=== PATIENT | male | born 1980 | race African-American/Black ===

== ENCOUNTER 2017-06-18 09:22 | Emergency (ER) | payer OTHER ==
[~2017-06-18] VITALS: Ht 177.8 cm; Wt 120.5 kg
[2017-06-18] MEDS ORDERED: SKELAXIN 800MG800 MG PO (12:01)
[2017-06-18] MEDS ORDERED: NORCO 325 MG-51 TA1 PO (12:01)
[2017-06-18] MEDS ORDERED: IBU800 M1 PO (12:01)
[2017-06-18 12:11] VITALS: BP 157/95
== END 2017-06-18 12:08 | disposition home or self-care (01) ==
LOC: ED 09:22
DX: S09.90XA Unspecified injury of head, initial encounter (principal); S19.9XXA Unspecified injury of neck, initial encounter; S00.83XA Contusion of other part of head, initial encounter; V43.62XA Car passenger injured in collision with other type car in traffic accident, initial encounter; Y92.410 Unspecified street and highway as the place of occurrence of the external cause; S00.93XA Contusion of unspecified part of head, initial encounter; S30.0XXA Contusion of lower back and pelvis, initial encounter; S20.222A Contusion of left back wall of thorax, initial encounter; S20.221A Contusion of right back wall of thorax, initial encounter; S40.012A Contusion of left shoulder, initial encounter; S80.02XA Contusion of left knee, initial encounter
CPT/HCPCS: A4565; J1885; J3010; Q9967